=== PATIENT | female | born 1965 | race Caucasian/White ===

== ENCOUNTER 2017-02-11 21:58 | Emergency (ER) | payer BC ==
[~2017-02-11] VITALS: Ht 170.2 cm; Wt 122.5 kg
[~2017-02-11 21:58] MED LIST: ALPR0.5T PO; BUDE3CAP5 PO; CYCL10TA9 PO; ESTR1PAT92 TD; FLUO40CA PO; LISD40CA3 PO; LISI10TA PO; LVT.025T PO; LVT.15T PO; MAGN250T7 PO; METF500T8 PO; METR500T PO; MNTL10T PO; MULT-974 PO; MULTIVITAMIN PO; POLY17PO23 GT; SUCR1TAB36 PO; TRAM50TA2 PO; VITAMIN E PO; VIVELLE-DOT TD
--- OUTSIDE RECORDS SUMMARY | 2017-02-11 22:03 | XMS REPORT | Clinical Summary ---
Author [facility] Address Unknown Phone Unavailable Care Team Providers Care Chrome Cleaner Name Role Phone PCP Unavailable Source Comments Some departments are not documenting in the electronic medical record. If you do not see the information that you expected, contact Release of Information in the Health Information Management department at [phone] for further assistance in locating additional records.[facility] Allergies No Known Allergies Current Medications Prescription Sig. Disp. Refills Start End Date Status Date montelukast (SINGULAIR) Take 1 Tab by mouth Active 10 mg tablet Daily. MULTIVITAMINS Take 1 Tab by mouth Active (MULTI-VITAMIN PO) Daily. estradiol,+, Apply 1 Patch to top of Active (VIVELLE-DOT) 0.1 mg/day skin as directed Every Mo patch & Th. lisinopril (PRINIVIL; Take 1 Tab by mouth 90 Tab 2 10/14/19 Active ZESTRIL) 10 mg tablet daily. 13 FLUoxetine (PROZAC) 20 mg Take 20 mg by mouth three Active capsule times daily. ALPRAZolam (XANAX) 0.5 mg Take 0.5 mg by mouth. 1-3 Active tablet times per day prn Magnesium 250 mg tab Take 1 Tab by mouth Active daily. cholecalciferol (VITAMIN Take 5,000 Units by mouth Active D-3) 1,000 units tablet daily. cyanocobalamin(+) Take 500 mcg by mouth Active (VITAMIN B-12) 500 mcg daily. tablet lisdexamfetamine(+) Take 40 mg by mouth every Active (VYVANSE) 40 mg capsule morning levothyroxine (SYNTHROID) TAKE ONE TABLET BY MOUTH 90 Tab 3 04/22/20 Active 175 mcg tablet DAILY FOR 6 DAYS OF THE 16 WEEK AND ONE-HALF TABLET ON SATURDAYS metFORMIN-XR(+) TAKE FOUR TABLETS BY 180 Tab 3 06/23/20 Active (GLUCOPHAGE XR) 500 mg MOUTH DAILY WITH EVENING 16 extended release tablet MEAL dexlansoprazole (+) Take 60 mg by mouth Active (DEXILANT) 60 mg capsule daily. sucralfate (CARAFATE) 1 Take 1 g by mouth four Active gram tablet times daily. Take on an empty stomach. benzonatate (TESSALON Take 100 mg by mouth Active PERLES) 100 mg capsule daily. Active Problems Problem Noted Date Diabetes mellitus type 2, uncomplicated (HCC) 01/16/2011 Overview: Type 2 Diabetes mellitus without known complications L ast Assessment & Plan: Essential hypertension 01/16/2011 Overview: Diagnosed 2005 L ast Assessment & Plan: Depression 01/16/2011 Last Assessment & Plan: Appears controlled at this time No new recommendations. 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 Largest 3 mm, No extrathyroidal extension 4 lymph nodes excised no LN involvement Surveillance Suppressed TG undetectable 2009, 2010, 2011, 2014 Thyroid ultrasound unremarkable for recurrence 2010, 2011, 2013 L ast Assessment & Plan: Family History Medical History Relation Name Comments Diabetes Brother Cholelithiasis Father Diabetes Father Thyroid Disease Father Cancer Maternal Uterine Grandmother Cholelithiasis Mother Hypertension Mother Cancer Other Colon - greatgrandfather Thyroid Disease Paternal Grandfather Relation Name Status Comments Brother Brother Father Alive Maternal Grandmother Mother Alive Other Paternal Grandfather Social History Tobacco Use Types Packs/Day Years Used Date Former Smoker Cigarettes 1 10 Quit: 03/05/2001 Smokeless Tobacco: Never Used Tobacco Cessation: Counseling Given: No Alcohol Use Drinks/Week oz/Week Comments Yes 2-3 Standard 1.2 - 1.8 drinks or equivalent Sex Assigned at Date Recorded Not on file Last Filed Vital Signs Vital Sign Reading Time Taken Blood Pressure 120/74 09/10/2016 10:34 AM [facility] Pulse 78 09/10/2016 10:34 AM [facility] Temperature 37 C (98.6 F) 02/29/2016 11:38 AM CDT Respiratory Rate 18 02/29/2016 11:38 AM CDT Oxygen Saturation 95% 02/29/2016 11:38 AM CDT Inhaled Oxygen - - Concentration Weight 122.7 kg (270 lb 6.4 oz) 09/10/2016 10:34 AM [facility] Height 170.2 cm (5' 7") 09/10/2016 10:34 AM [facility] Body Mass Index 42.35 09/10/2016 10:34 AM [facility] Plan of Treatment Health Maintenance Due Date Last Done Comments HEPATITIS C SCREENING 1964 PHYSICAL (COMPREHENSIVE) 1971 EXAM PERTUSSIS VACCINE 1975 TETANUS VACCINE 1981 PNEUMONIA VACCINE (DM) 1982 CERVICAL CANCER SCREENING 1994 BREAST CANCER SCREENING 01/16/2009 01/17/2008 COLORECTAL CANCER 2014 SCREENING INFLUENZA VACCINE 03/05/2017 04/04/2016 (Previously completed), 04/04/2015 (Previously completed), 04/04/2013 (Previously completed), Additional history exists HBA1C 03/13/2017 09/10/2016, 03/19/2016, 02/28/2015, Additional history exists MICROALBUMIN 03/31/2017 03/31/2016, 02/28/2015, 01/13/2013 DILATED EYE EXAM 04/04/2017 04/04/2016 (Previously completed), 03/19/2015 (Previously completed) FOOT EXAM 09/10/2017 09/10/2016, 09/10/2016, 03/19/2016, Additional history exists Results Not on filefrom Last 3 Months
[2017-02-11] MEDS ORDERED: NS IV 1000 ML 1,000 ML IV ONE ×2 (22:08→22:54)
[2017-02-11] MEDS ORDERED: ONDANSETRON 4 MG/2 ML (SDV) Z0FRAN IVP ONE (22:15)
--- NOTE | 2017-02-11 22:16 | ED General ---
General Stated Complaint: LOW BLOOD SUGAR Source of Information: Patient, Spouse ( TRIES TO DO ALL TALKING FOR PT) History of Present Illness Time Seen by Provider: 22:00 Initial Comments PT ARRIVES VIA POV "THINK SHE HAS LOW BLOOD SUGAR" BUT DID NOT CHECK BLOOD SUGAR PT IS DIABETIC AND TAKES METFORMIN, AND NEVER CHECKS BLOOD SUGAR--HAS GLUCOMETER , BUT NEITHER SHE NOR KNOW HOW TO USE IT. PT ATE AT 1800 TONIGHT, THEN HAD CRACKERS AND OJ 30 MINUTES PRIOR TO ARRIVAL HAS NOT TAKEN HER EVENING MEDICATIONS, WHICH INCLUDES METFORMIN PT STATES SHE WAS SITTING OUTSIDE AT A FRIEND'S HOUSE DRINKING WHITE WINE AND BECAME VERY HOT/CLAMMY/SWEATY AND WENT INSIDE AND ATE CRACKERS AND DRANK OJ PT STATES WAS VERY HUMID OUTSIDE AND WAS RAINY, AND FEELS LIKE SHE GOT TOO HOT-- STATES "I CAN'T TAKE THE HUMIDITY" HAS HAD SLIGHT NAUSEA, NO VOMITING NO HEADACHE NO VISION CHANGES NO PARESTHESIAS OR MOTOR DEFICITS NO CHEST PAIN OR SHORTNESS OF BREATH PT STATES IT FEELS LIKE SHE IS HAVING A PANIC ATTACK STATES SHE HAS WORKED ALOT THIS WEEK AND HAS HAD INCREASED STRESS THE LAST FEW DAYS. LATER STATES SHE HAS NOT HAD MUCH FLUID INTAKE TODAY PCP: DR. RUSSO Allergies and Home Medications Allergies Coded Allergies: No Known Drug Allergies (Unverified , 12/15/11) Home Medications Alprazolam 0.5 Mg Tablet, 0.5 MG PO DAILY, (Reported) Estradiol 1 Each Patch.tdsw, 1 EACH TD Twice weekly, (Reported) Fluoxetine Hcl 40 Mg Capsule, 1 EACH PO DAILY, (Reported) Levothyroxine Sodium 150 Mcg Tablet, 1 EACH PO DAILY, (Reported) Levothyroxine Sodium 25 Mcg Tablet, 1 EACH PO DAILY, (Reported) Lisdexamfetamine Dimesylate 40 Mg Capsule, 40 MG PO DAILY, (Reported) Lisinopril 10 Mg Tablet, 10 MG PO DAILY, (Reported) Metformin Hcl 500 Mg Tab.sr.24h, 1,000 MG PO BID WITH MEALS, (Reported) Montelukast Sodium 10 Mg Tablet, 1 TAB PO DAILY, #30 (Reported) Multivitamin 1 Each Tablet, 1 EACH PO DAILY, (Reported) Sucralfate 1 Gm Tablet, 1 GM PO QID, #120 Prescribed by: CORAL MOON on 06/19/16 1737 [Multivitamin] , 1 TAB PO DAILY, (Reported) [Vitamin E] , PO DAILY, (Reported) Constitutional: see HPI, diaphoresis, other (FLUSHED/HOT, WEAK) EENTM: no symptoms reported Respiratory: no symptoms reported Cardiovascular: no symptoms reported Gastrointestinal: see HPI, No abdominal pain, nausea, No vomiting Genitourinary: no symptoms reported Musculoskeletal: no symptoms reported Skin: no symptoms reported Psychiatric/Neurological: See HPI, Anxiety, Denies Headache, Denies Numbness, Denies Paresthesia, Denies Seizure, Denies Tingling, Denies Tremors, Denies Weakness Hematologic/Lymphatic: No Symptoms Reported Immunological/Allergic: no symptoms reported Past Vhmnjbf-Krejxv-Tjgjif Hx Patient Social History Alcohol Use: Occasionally Uses Recreational Drug Use: No Smoking Status: Never a Smoker Recent Foreign Travel: No Contact w/Someone Who Travel: No Recent Hopitalizations: No Immunizations Up To Date Date of Influenza Vaccine: May 19, 2016 Seasonal Allergies Seasonal Allergies: Yes Surgeries HX Surgeries: Yes Surgeries: Thyroidectomy Respiratory Hx Respiratory Disorders: No Cardiovascular Hx Cardiac Disorders: Yes Cardiac Disorders: Hypertension Neurological Hx Neurological Disorders: No Reproductive System Hx Reproductive Disorders: No Genitourinary Hx Genitourinary Disorders: No Gastrointestinal Hx Gastrointestinal Disorders: No Musculoskeletal Hx Musculoskeletal Disorders: Yes (BACK PAIN) Musculoskeletal Disorders: Chronic Back Pain Endocrine Hx Endocrine Disorders: Yes (HX OF TOTAL THYROIDECTOMY) Endocrine Disorders: Hypothyroidsim, Diabetes, Non-Insulin dep HEENT HX ENT Disorders: No Cancer Hx Cancer: No Psychosocial Hx Psychiatric Problems: Yes Behavioral Health Disorders: Anxiety, Depression Integumentary HX Skin/Integumentary Disorder: No Blood Transfusions Hx Blood Disorders: No Physical Exam Vital Signs Vital Sign - Last 12Hours 02/11/17 22:03 Temp 98.9 Pulse 75 Resp 20 B/P (MAP) 145/83 Pulse Ox 99 O2 Delivery Room Air Capillary Refill : General Appearance: No Apparent Distress, Anxious, Obese, Other (VERY FLUSHED, ANXIOUS, SKIN DAMP. PT AMBULATED IN ON HER OWN WITHOUT DIFFICULTY) HEENT: PERRL/EOMI Neck: Full Range of Motion, Normal Inspection, Non Tender, Supple, No Carotid Bruit, No JVD Respiratory: Normal Breath Sounds, No Accessory Muscle Use, No Respiratory Distress Cardiovascular: Regular Rate, Rhythm, No Edema, No JVD, No Murmur, Normal Peripheral Pulses Gastrointestinal: Normal Bowel Sounds, No Organomegaly, No Pulsatile Mass, Non Tender, Soft Extremity: Normal Capillary Refill, Normal Inspection, Normal Range of Motion, Non Tender, No Calf Tenderness, No Pedal Edema Neurologic/Psychiatric: Alert, Oriented x3, No Motor/Sensory Deficits, strap buckler machine II- XII Norm as Tested, Other (ANXIOUS) Skin: Damp, Diaphoresis, Other (FACE VERY FLUSHED) Progress/Results/Core Measures Results/Orders Lab Results Laboratory Tests Test 02/11/17 22:05 02/11/17 23:36 Range/Units White Blood Count 12.7 H 4.3-11.0 10^3/uL Red Blood Count 4.63 4.35-5.85 10^6/uL Hemoglobin 13.5 11.5-16.0 G/DL Hematocrit 40 35-52 % Mean Corpuscular Volume 87 80-99 FL Mean Corpuscular Hemoglobin 29 25-34 PG Mean Corpuscular Hemoglobin Concent 34 32-36 G/DL Red Cell Distribution Width 13.3 10.0-14.5 % Platelet Count 348 130-400 10^3/uL Mean Platelet Volume 10.1 7.4-10.4 FL Neutrophils (%) (Auto) 52 42-75 % Lymphocytes (%) (Auto) 37 12-44 % Monocytes (%) (Auto) 8 0-12 % Eosinophils (%) (Auto) 3 0-10 % Basophils (%) (Auto) 1 0-10 % Neutrophils # (Auto) 6.6 1.8-7.8 X 10^3 Lymphocytes # (Auto) 4.6 H 1.0-4.0 X 10^3 Monocytes # (Auto) 1.1 H 0.0-1.0 X 10^3 Eosinophils # (Auto) 0.3 0.0-0.3 10^3/uL Basophils # (Auto) 0.1 0.0-0.1 10^3/uL Prothrombin Time 12.6 12.2-14.7 SEC INR Comment 1.0 0.8-1.4 Activated Partial Thromboplast Time 24 24-35 SEC Sodium Level 141 135-145 MMOL/L Potassium Level 3.2 L 3.6-5.0 MMOL/L Chloride Level 105 98-107 MMOL/L Carbon Dioxide Level 18 L 21-32 MMOL/L Anion Gap 18 H 5-14 MMOL/L Blood Urea Nitrogen 14 7-18 MG/DL Creatinine 0.80 0.60-1.30 MG/DL Estimat Glomerular Filtration Rate > 60 BUN/Creatinine Ratio 18 Glucose Level 193 H 70-105 MG/DL Glucometer 193 H 70-110 MG/DL Calcium Level 9.9 8.5-10.1 MG/DL Magnesium Level 2.0 1.8-2.4 MG/DL Total Bilirubin 0.7 0.1-1.0 MG/DL Aspartate Amino Transf (AST/SGOT) 13 5-34 U/L Alanine Aminotransferase (ALT/SGPT) 16 0-55 U/L Alkaline Phosphatase 66 40-136 U/L Total Creatine Kinase 75 29-168 U/L Creatine Kinase MB 1.1 <6.6 NG/ML Troponin I < 0.30 <0.30 NG/ML B-Type Natriuretic Peptide < 10.0 <100.0 PG/ML Total Protein 7.3 6.4-8.2 GM/DL Albumin 4.5 3.2-4.5 GM/DL Amylase Level 35 25-125 U/L Lipase 19 8-78 U/L TSH [place] Testing 2.43 0.35-4.94 UIU/ML Serum Alcohol < 10 <10 MG/DL Urine Color YELLOW Urine Clarity CLEAR Urine pH 6 5-9 Urine Specific [place] 1.020 1.016-1.022 Urine Protein 2+ H NEGATIVE Urine Glucose (UA) 4+ H NEGATIVE Urine Ketones 3+ H NEGATIVE Urine Nitrite NEGATIVE NEGATIVE Urine Bilirubin NEGATIVE NEGATIVE Urine Urobilinogen NORMAL NORMAL MG/DL Urine Leukocyte Esterase NEGATIVE NEGATIVE Urine RBC (Auto) NEGATIVE NEGATIVE Urine RBC NONE /HPF Urine WBC NONE /HPF Urine Squamous Epithelial Cells 5-10 /HPF Urine Crystals NONE /LPF Urine Bacteria TRACE /HPF Urine Casts NONE /LPF Urine Mucus LARGE H /LPF Urine Culture Indicated NO Urine Opiates Screen NEGATIVE NEGATIVE Urine Oxycodone Screen NEGATIVE NEGATIVE Urine Methadone Screen NEGATIVE NEGATIVE Urine Propoxyphene Screen NEGATIVE NEGATIVE Urine Barbiturates Screen NEGATIVE NEGATIVE Ur Tricyclic Antidepressants Screen NEGATIVE NEGATIVE Urine Phencyclidine Screen NEGATIVE NEGATIVE Urine Amphetamines Screen POSITIVE H NEGATIVE Urine Methamphetamines Screen NEGATIVE NEGATIVE Urine Benzodiazepines Screen POSITIVE H NEGATIVE Urine Cocaine Screen NEGATIVE NEGATIVE Urine Cannabinoids Screen POSITIVE H NEGATIVE My Orders Orders - WILLEI HAMMOND DO Accucheck Stat ONCE (02/11/17 22:08) Saline Lock/Iv-Start (02/11/17 22:08) Ekg Tracing (02/11/17 22:08) Monitor-Rhythm Ecg Trace Only (02/11/17 22:08) Alcohol (02/11/17 22:08) Amylase (02/11/17 22:08) BNP (02/11/17 22:08) Cbc With Automated Diff (02/11/17 22:08) Comprehensive Metabolic Panel (02/11/17 22:08) Creatine Kinase (02/11/17 22:08) Creatine Kinase Mb (02/11/17 22:08) Drug Screen Stat (Urine) (02/11/17 22:08) Lipase (02/11/17 22:08) Magnesium (02/11/17 22:08) Protime With Inr (02/11/17:08) Partial Thromboplastin Time (02/11/17 22:08) Thyroid Analyzer (02/11/17 22:08) Troponin I (02/11/17 22:08) Ua Culture If Indicated (02/11/17 22:08) Saline Lock/Iv-Start (02/11/17 22:08) Ns Iv 1000 Ml (Sodium Chloride 0.9%) (02/11/17 22:08) Ondansetron Injection (Zofran Injectio (02/11/17 22:15) Saline Lock/Iv-Start (02/11/17 22:54) Ns Iv 1000 Ml (Sodium Chloride 0.9%) (02/11/17 22:54) Potassium Chloride (Tablet) (Klor Con Ta (02/11/17 23:15) Medications Given in ED Current Medications Medications Dose Ordered Sig/Uqinten Route Start Time Stop Time Status Last Admin Dose Admin Ondansetron HCl 4 mg ONCE ONCE IVP 02/11/17 22:15 02/11/17 22:16 DC 02/11/17 22:16 4 MG Potassium Chloride 20 meq ONCE ONCE PO 02/11/17 23:15 02/11/17 23:16 UNV 02/11/17 23:22 20 MEQ Sodium Chloride 1,000 ml @ 0 mls/hr Q0M ONCE IV 02/11/17 22:08 02/11/17 22:10 DC 02/11/17 22:16 1,000 MLS/HR Sodium Chloride 1,000 ml @ 0 mls/hr Q0M ONCE IV 02/11/17 22:54 02/11/17 22:55 DC 02/11/17 23:00 0 MLS/HR Vital Signs/I&O Vital Sign - Last 12Hours 02/11/17 22:03 Temp 98.9 Pulse 75 Resp 20 B/P (MAP) 145/83 Pulse Ox 99 O2 Delivery Room Air Intake and Output 02/12/17 00:00 Intake Total 2000 ml Balance 2000 ml Progress Note : Progress Note VOIDED AFTER 2 LITERS OF FLUID LOOKS AND FEELS MUCH BETTER AT DISMISSAL--FACE NO LONGER FLUSHED AND PT IS NO LONGER ANXIOUS ECG Initial ECG Impression Time: 22:19 Initial ECG Rate: 70 Initial ECG Rhythm: Normal Sinus Initial ECG Comparisson: No Previous ECG Available Departure Impression Impression: Primary Impression: Heat exhaustion Additional Impressions: Hypokalemia Volume depletion Disposition: 01 HOME, SELF-CARE Condition: Improved Departure-Patient Inst. Referrals: ASIF RUSSO MD (PCP/Family) Primary Care Physician Patient Instructions: Heat Exhaustion and Heat Stroke (DC), Hypokalemia (DC) Add. Discharge Instructions: LOTS OF CLEAR LIQUIDS--WATER, BROTH, JELLO, GATORADE DRINK ENOUGH SO YOU ARE URINATING EVERY 2 HOURS WHILE AWAKE TAKE YOUR REGULAR MEDICATIONS PRESCRIBED CHECK YOUR BLOOD SUGAR 3 TIMES A DAY BEFORE EACH MEAL FOLLOW UP WITH YOUR DR IN 2-3 DAYS FOR FURTHER CARE RETURN TO ER IF WORSE WILLIE HAMMOND DO Feb 11, 2017 22:16
[2017-02-11 22:17] LABS: BASOPHILS # (AUTO) 0.1 10^3/uL (0.0-0.1); BASOPHILS % (AUTO) 1 % (0-10); EOSINOPHILS # (AUTO) 0.3 10^3/uL (0.0-0.3); EOSINOPHILS % (AUTO) 3 % (0-10); LYMPHOCYTES # (AUTO) 4.6 X 10^3 (1.0-4.0); LYMPHOCYTES % (AUTO) 37 % (12-44); MEAN CORPUSCULAR HEMOGLOBIN 29 PG (25-34); MEAN CORPUSCULAR HGB CONC 34 G/DL (32-36); MEAN CORPUSCULAR VOLUME 87 FL (80-99); MEAN PLATELET VOLUME 10.1 FL (7.4-10.4); MONOCYTES # (AUTO) 1.1 X 10^3 (0.0-1.0); MONOCYTES % (AUTO) 8 % (0-12); NEUTROPHILS # (AUTO) 6.6 X 10^3 (1.8-7.8); NEUTROPHILS % (AUTO) 52 % (42-75); PLATELET COUNT 348 10^3/uL (130-400); RED BLOOD COUNT 4.63 10^6/uL (4.35-5.85); RED CELL DISTRIBUTION WIDTH 13.3 % (10.0-14.5); WHITE BLOOD COUNT 12.7 10^3/uL (4.3-11.0)
[2017-02-11 22:26] LABS: PROTHROMBIN TIME PATIENT 12.6 SEC (12.2-14.7)
[2017-02-11 22:36] LABS: ALANINE AMINOTRANSFERASE 16 U/L (0-55); ALBUMIN 4.5 GM/DL (3.2-4.5); ALCOHOL < 10 MG/DL (<10); AMYLASE 35 U/L (25-125); ANION GAP 18 MMOL/L (5-14); ASPARTATE AMINO TRANSFERASE 13 U/L (5-34); BILIRUBIN,TOTAL 0.7 MG/DL (0.1-1.0); BLOOD UREA NITROGEN 14 MG/DL (7-18); BUN/CREATININE RATIO 18; CALCIUM 9.9 MG/DL (8.5-10.1); CARBON DIOXIDE 18 MMOL/L (21-32); CHLORIDE 105 MMOL/L (98-107); CREATINE KINASE 75 U/L (29-168); GFR ESTIMATED > 60; GLUCOSE 193 MG/DL (70-105); LIPASE 19 U/L (8-78); POTASSIUM 3.2 MMOL/L (3.6-5.0); SODIUM 141 MMOL/L (135-145); TOTAL PROTEIN 7.3 GM/DL (6.4-8.2)
[2017-02-11 22:55] LABS: TROPONIN I < 0.30 NG/ML (<0.30)
[2017-02-11] MEDS ORDERED: KCL 10 MEQ TAB (MICRO K) PO ONE (23:15)
[2017-02-11 23:43] LABS: BILIRUBIN,URINE NEGATIVE (NEGATIVE); KETONES,URINE 3+ (NEGATIVE); LEUKOCYTE ESTERASE ,URINE NEGATIVE (NEGATIVE); NITRITE,URINE NEGATIVE (NEGATIVE); PH,URINE 6 (5-9); PROTEIN,URINE 2+ (NEGATIVE); UROBILINOGEN,URINE NORMAL (NORMAL)
[2017-02-12 00:07] VITALS: BP 110/78
== END 2017-02-12 00:07 | disposition home or self-care (01) ==
LOC: EDUNIT# 21:58 → ER 22:00
DX: T67.5XXA Heat exhaustion, unspecified, initial encounter (principal); E87.6 Hypokalemia; E86.9 Volume depletion, unspecified; E11.9 Type 2 diabetes mellitus without complications; I10 Essential (primary) hypertension; E89.0 Postprocedural hypothyroidism; Z79.84 Long term (current) use of oral hypoglycemic drugs; Z79.899 Other long term (current) drug therapy
CPT/HCPCS: 36415; 80053; 80306; 80320; 81000; 82150; 82550; 82553; 82962; 83690; 83735; 83880; 84443; 84484; 85025; 85610; 85730; 93005; 96361; 96374

== ENCOUNTER → 2018-10-10 | Outpatient (CLI) | payer BC ==
--- NOTE | 2018-10-11 12:20 | Diagnostic Imaging Report ---
INDICATION: Screening. EXAMINATION: Digital mammogram bilateral screening with 3-D tomosynthesis. The current study was also evaluated with a Computer Aided Detection (CAD) system. This study was compared to the prior exam of 10/26/2014 and 10/26/2013. At this time, there are no current complaints. FINDINGS: There are scattered fibroglandular densities in both breasts which could obscure a lesion. Overall, there does not appear to have been any significant change when compared to the prior exam. No primary or secondary sign of malignancy is noted. IMPRESSION: 1. There is no radiographic evidence for malignancy. 2. The patient should have her annual bilateral screening mammogram on schedule in October of 2019. ACR BI-RADS Category 1: Negative. Result letter will be mailed to the patient. Note: At least 10% of breast cancer is not imaged by mammography. Dictated by: Dictated on workstation # [id number]
== END ==
LOC: RAD 09:23
PROVIDERS: ATTEND Family Medicine
DX: Z12.31 Encounter for screening mammogram for malignant neoplasm of breast (principal)
CPT/HCPCS: 77067

== ENCOUNTER → 2019-05-08 | Outpatient (CLI) | payer BC ==
--- NOTE | 2019-05-08 09:19 | Diagnostic Imaging Report ---
PROCEDURE: US Gallbladder. TECHNIQUE: Multiple real-time grayscale images were obtained over the right upper quadrant in various projections. INDICATION: Right upper quadrant pain COMPARISON: None available FINDINGS: The liver is mildly enlarged measuring 21 cm in length. The liver demonstrates diffusely increased echogenicity with a coarsened echotexture and poor acoustic transmission. No focal hepatic mass. The gallbladder is unremarkable without evidence of gallstones, gallbladder wall thickening, or pericholecystic fluid. The common bile duct is within normal limits measuring 0.5 cm. The pancreas is not well seen secondary to overlying bowel gas. The right kidney is within normal limits in size without evidence of hydronephrosis or solid renal mass. No significant free fluid. Negative sonographic Mccauley sign. The aorta and inferior vena cava are not optimally visualized secondary to overlying bowel gas. IMPRESSION: Mild hepatomegaly with associated fatty infiltration of the liver. Dictated by: Dictated on workstation # [id number]
== END ==
LOC: RAD 07:54
PROVIDERS: ATTEND Nurse Practitioner Family
DX: K76.0 Fatty (change of) liver, not elsewhere classified (principal)
CPT/HCPCS: 76705

== ENCOUNTER → 2020-12-17 | Outpatient (CLI) | payer BC ==
--- NOTE | 2020-12-17 12:35 | Diagnostic Imaging Report ---
INDICATION: Routine screening. Comparison is made with prior mammogram from 10/22/2018 and 10/26/2014. 2-D and 3-D bilateral screening mammography was performed with CAD. Scattered fibroglandular densities are identified bilaterally. The parenchymal pattern is stable. There are scattered benign calcifications. No mass or malignant appearing microcalcifications are seen. Axillae are unremarkable. IMPRESSION: BI-RADS Category 2 No mammographic features suspicious for malignancy are identified. ACR BI-RADS Category 2: Benign findings. Result letter will be mailed to the patient. Note: At least 10% of breast cancer is not imaged by mammography. Dictated by: Dictated on workstation # [id number]
== END ==
LOC: RAD 08:06
PROVIDERS: ATTEND Nurse Practitioner Family
DX: Z12.31 Encounter for screening mammogram for malignant neoplasm of breast (principal)
CPT/HCPCS: 77063; 77067

== ENCOUNTER → 2022-03-02 | Outpatient (CLI) | payer BC ==
--- NOTE | 2022-03-02 10:50 | Diagnostic Imaging Report ---
Indication: Routine screening. Comparison is made with prior mammogram from 12/17/2020 and 10/10/2018. 2-D and 3-D bilateral screening mammography was performed with CAD. CAD is utilized. The current study was also evaluated with a Computer Aided Detection (CAD) system. Scattered fibroglandular densities are identified bilaterally. The parenchymal pattern is stable. No mass or malignant-appearing microcalcifications are seen. Occasional benign calcifications. Axillae are unremarkable. IMPRESSION: BI-RADS Category 2 No mammographic features suspicious for malignancy are identified. ACR BI-RADS Category 2: Benign findings. Result letter will be mailed to the patient. Note: At least 10% of breast cancer is not imaged by mammography. Dictated by: Dictated on workstation # [id number]
== END ==
LOC: RAD 07:34
PROVIDERS: ATTEND Family Medicine
DX: Z12.31 Encounter for screening mammogram for malignant neoplasm of breast (principal)
CPT/HCPCS: 77063; 77067

== ENCOUNTER 2022-04-27 13:43 | Outpatient (RCR) | payer BC | END 2022-05-04 | disposition home or self-care (01) | PROVIDERS: ATTEND Nurse Practitioner | DX: M70.61 Trochanteric bursitis, right hip (principal); I10 Essential (primary) hypertension ==

== ENCOUNTER 2022-05-18 15:00 | Outpatient (RCR) | payer BC | END 2022-06-03 | disposition home or self-care (01) | PROVIDERS: ATTEND Nurse Practitioner | DX: M70.61 Trochanteric bursitis, right hip (principal) ==

== ENCOUNTER 2022-06-23 15:30 | Outpatient (RCR) | payer BC | END 2022-07-04 | disposition home or self-care (01) | PROVIDERS: ATTEND Nurse Practitioner | DX: M70.61 Trochanteric bursitis, right hip (principal) ==